=== PATIENT | female | born 1965 | race Caucasian/White ===

== ENCOUNTER 2020-12-18 09:26 | Day surgery (SDC) | payer OTHER ==
[2020-12-15 13:57] VITALS: BMI 28.7
[~2020-12-18 09:26] MED LIST: LACTATED RINGERS 1,000 ML IV SCH
[2020-12-18 09:54] VITALS: RESP 16; TEMP 97.8
[2020-12-18] MEDS ORDERED: LIDOCAINE 1% (10MG/ML) FOR IV START INTRADERMA ONE (09:54)
[2020-12-18] MEDS: MIDAZOLAM 2 MG/2 ML VIAL IVP ONE ×2 (10:02→10:05)
[2020-12-18] MEDS ORDERED: fentaNYL (PF) 50 MCG/ML 2 ML AMP ONE (10:33)
[2020-12-18] MEDS ORDERED: LIDOCAINE 1% INJ 10MG/ML (20 ML MDV) ONE (10:33)
[2020-12-18] MEDS ORDERED: PROPOFOL 10 MG/ML 20 ML VIAL IV ONE (10:33)
[2020-12-18] MEDS ORDERED: MIDAZOLAM 2 MG/2 ML VIAL ONE (10:33)
--- NOTE | 2020-12-18 11:12 | P.PCN ---
Date of Procedure: 12/18/20 Description of Procedure: Brief history: Patient is a pleasant 55-year-old female presenting for outpatient EGD and colonoscopy for evaluation of GERD, epigastric pain and screening for malignant neoplasm of the colon. She reports frequent episodes of epigastric pain. She is on omeprazole twice daily. She also takes migraine medication daily. She reports a remote history of colonoscopy in the past. No family history of colon cancer. Procedure performed: Esophagogastroduodenoscopy with biopsy Colonoscopy Estimated blood loss: Minimal. Preoperative diagnosis: GERD, screening for malignant neoplasm colon, remote history of colonoscopy. Anesthesia: MAC Procedure: After informed consent was obtained from the patient was brought into the endoscopy unit and IV sedation was administered by anesthesia under continuous monitoring. Initially upper endoscopy was done. The Olympus GF 190 video endoscope was inserted into the mouth and esophagus intubated without any difficulty and was gradually advanced into the stomach and duodenum and carefully examined. The bulb and second part of the duodenum appeared normal and biopsies. The scope was then withdrawn into the stomach adequately insufflated with air and upon careful examination the antrum and body, cardia and fundus appeared normal, except for some mild scattered erythema in the antrum and body suggestive of mild gastritis with biopsies taken and a 3 mm linear nonbleeding antral ulcer which was biopsied. The scope was then withdrawn into the esophagus. The GE junction was located at 40 cm to the incisors and biopsies. It appeared regular with no erythema erosions or ulcerations. Rest of the esophagus appeared normal. Patient tolerated the procedure well. At this time the patient continued to remain sedation. Initial digital rectal examination was normal. Olympus CF 190 video colonoscope was then inserted into the rectum and gradually advanced to the cecum without any difficulty. Careful examination was performed as the scope was gradually being withdrawn. The prep was excellent. The cecum, ascending colon, transverse colon, descending colon, sigmoid colon and rectum appeared normal. Retroflexion was performed in the rectum and no lesions were noted, low-grade internal hemorrhoids. Patient tolerated the procedure well. Impression: 1. Nonbleeding linear antral ulcer biopsied. Mild gastritis in the body, biopsied. Biopsies of the duodenum and GE junction. 2. Normal-appearing colon from rectum to cecum. Internal hemorrhoids. Recommendations: Findings of this examination were discussed with the patient. Okay to resume diet. Okay to resume medications. Continue twice daily omeprazole therapy. Strongly recommend patient discontinue use of migraine relief/NSAID medications and seek alternative medications, okay for acetaminophen. Await pathology from biopsies. Recommend repeat colonoscopy in 10 years for screening for malignant neoplasm of the colon, or sooner if signs or symptoms which warrant further evaluation develop. Can consider repeat EGD in 6-8 weeks to check for ulcer healing.
[2020-12-18 11:30] VITALS: BP 157/92; PULSE 58
== END 2020-12-18 12:10 | disposition home or self-care (01) ==
LOC: ORWHC2ENDO 09:26
PROVIDERS: ATTEND Internal Medicine
DX: Z12.11 Encounter for screening for malignant neoplasm of colon (principal); K29.50 Unspecified chronic gastritis without bleeding; K25.9 Gastric ulcer, unspecified as acute or chronic, without hemorrhage or perforation; K21.9 Gastro-esophageal reflux disease without esophagitis; G43.109 Migraine with aura, not intractable, without status migrainosus; K64.8 Other hemorrhoids; Z98.890 Other specified postprocedural states; I10 Essential (primary) hypertension; J45.909 Unspecified asthma, uncomplicated; Z72.0 Tobacco use; Z91.041 Radiographic dye allergy status; Z98.51 Tubal ligation status; Z79.899 Other long term (current) drug therapy
CPT/HCPCS: 88305; 43239; J2250; J2001; J3010; J2704; G0121